=== PATIENT | male | born 1985 | race Caucasian/White ===

== ENCOUNTER 2017-07-14 19:45 | Emergency (ER) | payer OTHER ==
[~2017-07-14] VITALS: Ht 177.8 cm; Wt 77.2 kg
[2017-07-14 20:11] VITALS: BP 144/86
--- NOTE | 2017-07-14 20:33 | NUR ---
PATIENT AMNULATED TO OVERFLOW CHAIR E
--- NOTE | 2017-07-14 20:37 | NUR ---
32Y M BIB SELF C/O PENILE AND SORE THROAT X 2 DAYS. PT STATES HE WAS HERE IN THE ER 48 HOURS AGO FOR SAME SYMPTOMS, MEDICATED BUT SYMPTOMS GOT WORSE. PT STATES THERE IS DIFFICULTY URINATING. NO SPONTANEOUSLY DISCHARGE. PT DENIES ANY N/V/D, SOB, CP AT THE MOMENT PT AAOX4.
--- NOTE | 2017-07-14 20:37 | NUR ---
Patient being evaluated by physician at bedside.
[2017-07-14] MEDS ORDERED: AMPICILLIN/SULBACTAM 3 GM in NACL 0.9% 100 ML IV ONE (20:45)
[2017-07-14] MEDS ORDERED: KETOROLAC 30 MG/ML VIAL IVP ONE (20:45)
[2017-07-14] MEDS ORDERED: methylPREDNISolone SS 125 MG in WATER STERILE 2 ML IV ONE (20:45)
[2017-07-14] MEDS ORDERED: NACL 0.9% 500 ML IV ONE (20:45)
[2017-07-14] MEDS ORDERED: AMPICILLIN/SULBACTAM 3 GM VIAL ONE (21:15)
--- NOTE | 2017-07-14 22:30 | NUR ---
IV removed, catheter intact and site benign. Applied folded 4x4 gauze and tape to stop bleeding.
[2017-07-14 23:11] VITALS: BP 136/71
--- NOTE | 2017-07-14 23:11 | NUR ---
Patient discharged with v/s stable BY DR MILLER. Written and verbal after care instructions given and explained BY DR MILLER. Patient alert, oriented and verbalized understanding of instructions. Ambulatory with steady gait. All questions addressed prior to discharge BY DR MILLER. ID band removed. Patient advised to follow up with PMD. Rx of AUGMENTIN 875MG given. Patient educated on indication of medication including possible reaction and side effects. Opportunity to ask questions provided and answered BY DR MILLER.
--- NOTE | 2017-07-15 18:12 | NUR ---
PATIENT SENT HOME ON Z PACK.
== END 2017-07-14 22:11 | disposition home or self-care (01) ==
LOC: MED 19:45
DX: J02.9 Acute pharyngitis, unspecified (principal); R30.0 Dysuria
CPT/HCPCS: 96365; 96375; 99284; J0295; J1885; J2930; J7030